=== PATIENT | female | born 1995 | race Caucasian/White ===

== ENCOUNTER 2023-09-01 09:57 | Emergency (ER) | payer SELFPAY ==
[2023-09-01] MEDS ORDERED: Potassium Chloride 20 MEQ TAB ONE (11:08)
[2023-09-01] MEDS ORDERED: Ketorolac Tromethamine 30 MG/ML VIAL ONE (11:08)
[2023-09-01] MEDS ORDERED: Ondansetron ODT 4 MG TAB ONE (11:16)
[2023-09-01 11:34] LABS: SARS-CoV-2 NAA Rapid Test Not Detected (NotDetected)
== END 2023-09-01 11:30 | disposition home or self-care (01) ==
LOC: CSHERS 09:57
DX: B34.9 Viral infection, unspecified (principal); G43.909 Migraine, unspecified, not intractable, without status migrainosus; F17.290 Nicotine dependence, other tobacco product, uncomplicated; Z20.822 Contact with and (suspected) exposure to COVID-19
CPT/HCPCS: 96372; 99283; J1885; Q0162